=== PATIENT | male | born 1990 | race Caucasian/White ===

== ENCOUNTER 2017-05-14 15:14 | Emergency (ER) | payer SELFPAY ==
[2017-05-14] MEDS ORDERED: IBUPROFEN 400 MG TABLET PO STA (15:43)
[2017-05-14] MEDS ORDERED: IBUPROFEN 400 MG TABLET PO ONE (15:56)
--- NOTE | 2017-05-14 16:18 | XRAY Preliminary Report ---
Exam: XR CHEST 2 VIEW PA/LAT IMPRESSION: No acute intrathoracic plain film abnormality. [facility] SITE ID: [id number]
--- NOTE | 2017-05-14 16:19 | XRAY Preliminary Report ---
Exam: XR HIP W/PELVIS 2-3V LT IMPRESSION: No evidence of fracture or dislocation. [facility] SITE ID: [id number]
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
[2017-05-14 16:21] VITALS: BP 126/73
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
--- NOTE | 2017-05-14 16:31 | CT Preliminary Report ---
Exam: CT HEAD W/O IMPRESSION: No acute intracranial CT abnormality. [facility] SITE ID: [id number]
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
--- NOTE | 2017-05-14 16:35 | CT Preliminary Report ---
Exam: CT CERVICAL SPINE W/O IMPRESSION: No evidence of cervical spine fracture or dislocation. [facility] SITE ID: [id number]
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
== END 2017-05-14 17:34 | disposition home or self-care (01) ==
LOC: EDUNIT# → ED 15:14
DX: S09.90XA Unspecified injury of head, initial encounter (principal); S13.9XXA Sprain of joints and ligaments of unspecified parts of neck, initial encounter; V48.5XXA Car driver injured in noncollision transport accident in traffic accident, initial encounter; Y92.410 Unspecified street and highway as the place of occurrence of the external cause
CPT/HCPCS: 70450; 71020; 72125; 73502; 99283; A9270

== ENCOUNTER 2018-08-25 13:06 | Emergency (ER) | payer MEDICAID ==
[2018-08-25] MEDS ORDERED: LIDOCAINE 1%-EPI 1:100000 30 ML MDV SUBQ STA (13:28)
[2018-08-25] MEDS ORDERED: LIDOCAINE 1%-EPI 1:100000 30 ML MDV ONE (13:33)
--- NOTE | 2018-08-25 13:36 | ED Physician Documentation ---
PD HPI UPPER EXT INJURY - Stated complaint Stated Complaint: HAND LAC - Chief complaint Chief Complaint: Laceration - History obtained from History obtained from: Patient - History of Present Illness Location: Left, Hand (thumb and wrist) Type of injury: Laceration (broken pickle jar) Where injury occurred: Home Timing - onset: Last night Timing - duration: Hours (12) Timing - details: Abrupt onset Pain level max: 5 Pain level now: 4 Improved by: Rest, Ice, Immobilization Worsened by: Moving, Palpating Associated symptoms: Swelling. No: Weakness, Numbness, Tingling Contributing factors: No: Anticoagulated Recently seen: Not recently seen - Additonal information Additional information: pt is right handed Review of Systems Constitutional: denies: Fever Skin: denies: Rash PD PAST MEDICAL HISTORY - Past Medical History Past Medical History: No - Past Surgical History Past Surgical History: No - Present Medications Home Medications: Ambulatory Orders Medication Instructions Recorded Confirmed No Known Home Medications 08/25/18 08/25/18 - Allergies Allergies/Adverse Reactions: Allergies Allergy/AdvReac Type Severity Reaction Status Date / Time No Known Drug Allergies Allergy Verified 10/14/15 15:39 - Social History Does the pt smoke?: Yes Smoking Status: Current every day smoker Does the pt drink ETOH?: Yes Does the pt have substance abuse?: No - Family History Family history: reports: Non contributory - Immunizations Immunizations are current?: No Immunizations: TDAP >10years/unknown PD ED PE NORMAL - Vitals Vital signs reviewed: Yes - General General: Alert and oriented X 3 - Derm Derm: Warm and dry - Neuro Neuro: Alert and oriented X 3 PD ED PE EXPANDED - Extremities AYAN UE/Hands Visual: 1 - laceration (2cm, subcutaneous, NVI. tendon intact.) 2 - laceration (2cm, linear into fat. NVI. tendons intact.) Results - Vitals Vitals: Vital Signs - 24 hr 08/25/18 08/25/18 08/25/18 13:24 13:44 14:13 Temperature 36.6 C Heart Rate 84 76 77 Respiratory 18 18 Rate Blood Pressure 138/89 H 121/67 117/71 O2 Saturation 99 100 99 Oxygen O2 Source Room air Procedures - Laceration (location) Left hand Length in cm: 4 Wound type: Linear, Into subcut fat, Clean Neurovascular status: Sensory intact, Motor intact, Vascular intact Tendon involvement: Tendon intact Anesthesia: Lidocaine 1% with epi Wound Preparation: Irrigated copiously NS, Wound explored, To the base. No: FB identified, FB removed Skin layer closure: Nylon, Interrupted, Size #-0 - enter number (4) Other: Patient tolerated well, No complications, Neurovascular intact, Tetanus booster given (tdap) Complexity: Simple PD MEDICAL DECISION MAKING - ED course Complexity details: re-evaluated patient, considered differential, d/w patient ED course: 28-year-old male presents to the emergency department with left hand lacerations after falling while holding a pickle jar lacerating his hands. These were repaired. Warnings of infection and instructions on wound care given at bedside. Also counseled on how to minimize scarring. Patient counseled reg arding signs and symptoms for which I believe and urgent re-evaluation would be necessary. Patient with good understanding of and agreement to plan and is comfortable going home at this time This document was made in part using voice recognition software. While efforts are made to proofread this document, sound alike and grammatical errors may occur. Departure - Departure Disposition: 01 Home, Self Care Clinical Impression: Hand laceration Qualifiers: Encounter type: initial encounter Foreign body presence: without foreign body Laterality: left Qualified Code(s): S61.412A - Laceration without foreign body of left hand, initial encounter Condition: Good Instructions: ED Laceration Hand Follow-Up: your,doctor in 10-14 days for suture removal [Other] Comments: Return if you worsen. Keep the wound clean. Follow up with your doctor in 10-14 days for suture removal. Return for redness, swelling or drainage from the wound. Discharge Date/Time: 08/25/18 14:24
[2018-08-25] MEDS ORDERED: TETANUS/DIPHTHERIA/PERTUSSIS 0.5 ML SYRINGE IM ONE (14:04)
[2018-08-25] MEDS: TETANUS/DIPHTHERIA TOXOID 0.5 ML SYRINGE IM ONE ×2 (14:04→14:07)
[2018-08-25] MEDS ORDERED: BACITRACIN OINT TOP ONE (14:06)
[2018-08-25 14:13] VITALS: BP 117/71
== END 2018-08-25 14:24 | disposition home or self-care (01) ==
LOC: ED 13:06
DX: S61.512A Laceration without foreign body of left wrist, initial encounter (principal); S61.012A Laceration without foreign body of left thumb without damage to nail, initial encounter; W01.110A Fall on same level from slipping, tripping and stumbling with subsequent striking against sharp glass, initial encounter; Y92.009 Unspecified place in unspecified non-institutional (private) residence as the place of occurrence of the external cause; F17.200 Nicotine dependence, unspecified, uncomplicated; Z23 Encounter for immunization
CPT/HCPCS: 12002; 90471; 99282; 99283

== ENCOUNTER 2019-06-30 10:32 | Emergency (ER) | payer MEDICAID ==
--- NOTE | 2019-06-30 11:37 | ED Physician Documentation ---
PD HPI MHE - Stated complaint Stated Complaint: SI - Chief complaint Chief Complaint: MHE - History obtained from History obtained from: Patient - History of Present Illness Primary symptom: Suicidal ideation, Self harm - cut, Other (alcoholism) Timing - onset: How many weeks ago (He has had some depression for a while but more notable in the last few weeks. He is mostly depressed about his alcohol use and being unable to stop. There not been any social triggers or other issues per se.) Contributing factors: Substance abuse - ETOH (He does drink daily. He states he does not start till afternoon. He has not gone more than a day or 2 without feeling significant shakiness and withdrawal symptoms. He states he does not take any antidepressant medicines. He does get counseling weekly or every other week by a private practice counselor in [place].). No: Substance abuse - drugs Similar symptoms before: Diagnosis (Some history of depression in the past without any prior suicidal attempts.) Recently seen: Not recently seen Review of Systems Constitutional: denies: Fever, Chills Nose: denies: Rhinorrhea / runny nose, Congestion Throat: denies: Sore throat Cardiac: denies: Chest pain / pressure Respiratory: denies: Cough GI: denies: Abdominal Pain, Nausea, Vomiting, Diarrhea Musculoskeletal: denies: Neck pain, Back pain Neurologic: denies: Focal weakness, Numbness PD PAST MEDICAL HISTORY - Past Medical History Cardiovascular: None Respiratory: None Neuro: None Endocrine/Autoimmune: None Psych: Depression - Past Surgical History Past Surgical History: No - Present Medications Home Medications: Ambulatory Orders Medication Instructions Recorded Confirmed Ondansetron Odt [Zofran] 4 mg TL Q6H PRN #10 tablet 06/30/19 chlordiazePOXIDE [Librium] 25 mg PO Q6H PRN #25 capsule 06/30/19 - Allergies Allergies/Adverse Reactions: Allergies Allergy/AdvReac Type Severity Reaction Status Date / Time Penicillins Allergy Rash Verified 06/30/19 10:36 - Living Situation Living Arrangement: reports: At home - Social History Does the pt smoke?: Yes Smoking Status: Current every day smoker Does the pt drink ETOH?: Yes ETOH Use: Liquor Does the pt have substance abuse?: Yes Substance Use and Type: Marijuana - Immunizations Immunizations are current?: No Immunizations: TDAP >10years/unknown - POLST Patient has POLST: No PD ED PE NORMAL - Vitals Vital signs reviewed: Yes - General General: Alert and oriented X 3, Well developed/nourished - HEENT HEENT: Atraumatic, Pharynx benign - Neck Neck: Supple, no meningeal sign, No adenopathy - Cardiac Cardiac: RRR, No murmur - Respiratory Respiratory: Clear bilaterally - Abdomen Abdomen: Soft, Non tender, Non distended, No organomegaly - Derm Derm: Normal color, Warm and dry - Extremities Extremities: Normal ROM s pain, No edema, Other (The left radial side and palmar part of the wrist have very superficial lacerations without any full-thickness. He has normal sensation and movement in the fingers.) - Neuro Neuro: Alert and oriented X 3, No motor deficit, Normal speech Results - Vitals Vitals: Vital Signs - 24 hr 06/30/19 06/30/19 10:37 10:54 Temperature 36.7 C Heart Rate 90 Respiratory 18 18 Rate Blood Pressure 148/96 H 146/94 H O2 Saturation 100 Oxygen O2 Source Room air - Labs Labs: Laboratory Tests 06/30/19 06/30/19 06/30/19 12:10 12:10 12:10 WBC 15.5 H RBC 4.65 L Hgb 15.8 Hct 45.3 MCV 97.4 H MCH 34.0 H MCHC 34.9 RDW 11.9 L Plt Count 379 MPV 9.3 Neut # (Auto) 10.6 H Lymph # (Auto) 3.7 H [place] # (Auto) 0.9 Eos # (Auto) 0.1 Baso # (Auto) 0.1 Absolute Nucleated RBC 0.00 Nucleated RBC % 0.0 Sodium 137 Potassium 3.5 Chloride 98 L Carbon Dioxide 28 Anion Gap 11.0 BUN 8 Creatinine 0.8 Estimated GFR (MDRD) 114 Glucose 88 Calcium 9.3 Total Bilirubin 0.8 AST 62 H ALT 32 Alkaline Phosphatase 53 Total Protein 8.2 Albumin 4.7 Globulin 3.5 Albumin/Globulin Ratio 1.3 Lipase 45 TSH 0.52 Urine Color Urine Clarity Urine pH Ur Specific [place] Urine Protein Urine Glucose (UA) Urine Ketones Urine Occult Blood Urine Nitrite Urine Bilirubin Urine Urobilinogen Ur Leukocyte Esterase Ur Microscopic Review Urine Culture Comments Salicylates < 6.0 Urine Opiates Screen Ur Oxycodone Screen Urine Methadone Screen Ur Propoxyphene Screen Acetaminophen < 10 L Ur Barbiturates Screen Ur Tricyclics Screen Ur Phencyclidine Scrn Ur Amphetamine Screen U Methamphetamines Scrn U Benzodiazepines Scrn Urine Cocaine Screen U Cannabinoids Screen Ethyl Alcohol 328.8 06/30/19 12:15 WBC RBC Hgb Hct MCV MCH MCHC RDW Plt Count MPV Neut # (Auto) Lymph # (Auto) [place] # (Auto) Eos # (Auto) Baso # (Auto) Absolute Nucleated RBC Nucleated RBC % Sodium Potassium Chloride Carbon Dioxide Anion Gap BUN Creatinine Estimated GFR (MDRD) Glucose Calcium Total Bilirubin AST ALT Alkaline Phosphatase Total Protein Albumin Globulin Albumin/Globulin Ratio Lipase TSH Urine Color YELLOW Urine Clarity CLEAR Urine pH 6.5 Ur Specific [place] <=1.005 Urine Protein NEGATIVE Urine Glucose (UA) NEGATIVE Urine Ketones NEGATIVE Urine Occult Blood NEGATIVE Urine Nitrite NEGATIVE Urine Bilirubin NEGATIVE Urine Urobilinogen 0.2 (NORMAL) Ur Leukocyte Esterase NEGATIVE Ur Microscopic Review NOT INDICATED Urine Culture Comments NOT INDICATED Salicylates Urine Opiates Screen NEGATIVE Ur Oxycodone Screen NEGATIVE Urine Methadone Screen NEGATIVE Ur Propoxyphene Screen NEGATIVE Acetaminophen Ur Barbiturates Screen NEGATIVE Ur Tricyclics Screen NEGATIVE Ur Phencyclidine Scrn NEGATIVE Ur Amphetamine Screen NEGATIVE U Methamphetamines Scrn NEGATIVE U Benzodiazepines Scrn NEGATIVE Urine Cocaine Screen NEGATIVE U Cannabinoids Screen NEGATIVE Ethyl Alcohol PD MEDICAL DECISION MAKING - ED course Complexity details: re-evaluated patient (Patient slept and rested most of the afternoon. He is still feeling depressed when I reassessed him around dinnertime. At this point it seems reasonable for him to have the alcohol level still become lower and treat any withdrawal symptoms and have social work evaluate him.), considered differential (He does have history of alcoholism and had drank prior to coming here. He did make some superficial lacerations of the left wrist with intention to go deeper but did not have the desire to hurt himself more at that time. He does want help with his alcoholism and is most depressed about that. He does not currently get it any medication for depression but does get a counselor every week or 2. We will contact social work to come evaluate the patient. In particular dual diagnosis facility may be helpful if he wishes hospitalization. Otherwise he does request medication to help with alcohol withdrawal as have been his limitation on being able to quit.), d/w patient Departure - Departure Clinical Impression: Alcoholism, Suicidal ideation Laceration of wrist, left Qualifiers: Encounter type: initial encounter Qualified Code(s): S61.512A - Laceration without foreign body of left wrist, initial encounter Condition: Stable Record reviewed to determine appropriate education?: Yes Prescriptions: chlordiazePOXIDE [Librium] 25 mg PO Q6H PRN #25 capsule PRN Reason: Alcohol Withdrawal Ondansetron Odt [Zofran] 4 mg TL Q6H PRN #10 tablet PRN Reason: Nausea / Vomiting
[2019-06-30] MEDS ORDERED: LORazepam 1 MG TABLET PO STA (11:47)
[2019-06-30] MEDS ORDERED: OLANZapine ODT 5 MG TABLET TL ONE (11:47)
[2019-06-30 12:29] LABS: MUDS CUTOFF CONCENTRATIONS CUTOFF CONC BELOW:
[2019-06-30 12:33] LABS: BILIRUBIN,URINE NEGATIVE (NEGATIVE); GLUCOSE, URINE (UA) NEGATIVE (NEGATIVE); KETONES,URINE (UA) NEGATIVE (NEGATIVE); LEUKOCYTE ESTERASE, URINE NEGATIVE (NEGATIVE); NITRITE,URINE NEGATIVE (NEGATIVE); OCCULT BLOOD,URINE NEGATIVE (NEGATIVE); PH,URINE 6.5 PH (5.0-7.5); PROTEIN,URINE NEGATIVE (NEGATIVE); UROBILINOGEN,URINE 0.2 (NORMAL) E.U./dL (NORMAL)
[2019-06-30 12:34] LABS: CLARITY,URINE CLEAR (CLEAR)
[2019-06-30 12:42] LABS: AMPHETAMINE SCREEN,URINE NEGATIVE (NEGATIVE); BENZODIAZEPINES SCREEN, URINE NEGATIVE (NEGATIVE); COCAINE SCREEN URINE NEGATIVE (NEGATIVE); METHADONE SCREEN, URINE NEGATIVE (NEGATIVE); METHAMPHETAMINES SCREEN, URINE NEGATIVE (NEGATIVE); OPIATE SCREEN, URINE NEGATIVE (NEGATIVE); OXYCODONE SCREEN, URINE NEGATIVE (NEGATIVE); PROPOXYPHENE SCREEN, URINE NEGATIVE (NEGATIVE); TRICYCLIC ANTIDEPRESSANT,URINE NEGATIVE (NEGATIVE)
[2019-06-30 12:43] LABS: BASOPHILS # (AUTO) 0.1 10^3/uL (0.0-0.1); BASOPHILS % (AUTO) 0.9 %; EOSINOPHILS # (AUTO) 0.1 10^3/uL (0.0-0.7); EOSINOPHILS % (AUTO) 0.6 %; HGB - HEMOGLOBIN 15.8 g/dL (14.0-18.0); LYMPHOCYTES # (AUTO) 3.7 10^3/uL (1.5-3.5); LYMPHOCYTES % (AUTO) 23.6 %; MEAN CORPUSCULAR HGB CONC 34.9 g/dL (32.0-36.0); MEAN CORPUSCULAR VOLUME 97.4 fL (80.0-94.0); MEAN PLATELET VOLUME 9.3 fL (7.4-11.4); MONOCYTES # (AUTO) 0.9 10^3/uL (0.0-1.0); NEUTROPHILS # (AUTO) 10.6 10^3/uL (1.5-6.6); NEUTROPHILS % (AUTO) 68.3 %; PLT - PLATELET COUNT 379 10^3/uL (130-450); RED BLOOD COUNT 4.65 10^6/uL (4.70-6.10); RED CELL DISTRIBUTION WIDTH 11.9 % (12.0-15.0); WHITE BLOOD COUNT 15.5 x10^3/uL (4.8-10.8)
[2019-06-30 13:14] LABS: ACETAMINOPHEN < 10 ug/mL (10-30); ALBUMIN 4.7 g/dL (3.2-5.5); ALBUMIN/GLOBULIN RATIO 1.3 (1.0-2.2); ALKALINE PHOSPHATASE 53 IU/L (42-121); ALT ALANINE AMINOTRANSFERASE 32 IU/L (10-60); AST ASPARTATE AMINOTRANSFERASE 62 IU/L (10-42); BILIRUBIN,TOTAL 0.8 mg/dL (0.2-1.0); BUN - BLOOD UREA NITROGEN 8 mg/dL (6-20); CALCIUM 9.3 mg/dL (8.5-10.3); CARBON DIOXIDE - CO2 28 mmol/L (21-32); CHLORIDE 98 mmol/L (101-111); CREATININE 0.8 mg/dL (0.6-1.2); GFR - MDRD 114 (>89); GLUCOSE 88 mg/dL (70-100); LIPASE 45 U/L (22-51); SALICYLATE < 6.0 mg/dL; SODIUM 137 mmol/L (135-145); TOTAL PROTEIN 8.2 g/dL (6.7-8.2)
[2019-06-30] MEDS ORDERED: LORazepam 1 MG TABLET PO PRN (18:08)
[2019-06-30] MEDS ORDERED: NICOTINE 14 MG PATCH TOP STA (23:44)
[2019-07-01 08:12] LABS: BASOPHILS # (AUTO) 0.1 10^3/uL (0.0-0.1); BASOPHILS % (AUTO) 1.4 %; EOSINOPHILS # (AUTO) 0.1 10^3/uL (0.0-0.7); EOSINOPHILS % (AUTO) 1.3 %; HGB - HEMOGLOBIN 14.4 g/dL (14.0-18.0); LYMPHOCYTES # (AUTO) 2.3 10^3/uL (1.5-3.5); LYMPHOCYTES % (AUTO) 29.8 %; MEAN CORPUSCULAR HGB CONC 34.2 g/dL (32.0-36.0); MEAN CORPUSCULAR VOLUME 99.3 fL (80.0-94.0); MEAN PLATELET VOLUME 9.7 fL (7.4-11.4); MONOCYTES # (AUTO) 0.9 10^3/uL (0.0-1.0); MONOCYTES % (AUTO) 12.1 %; NEUTROPHILS # (AUTO) 4.2 10^3/uL (1.5-6.6); PLT - PLATELET COUNT 292 10^3/uL (130-450); RED BLOOD COUNT 4.24 10^6/uL (4.70-6.10); RED CELL DISTRIBUTION WIDTH 11.7 % (12.0-15.0); WHITE BLOOD COUNT 7.6 x10^3/uL (4.8-10.8)
[2019-07-01] MEDS ORDERED: LORazepam 1 MG TABLET PO STA (08:46)
--- NOTE | 2019-07-01 08:46 | ED Physician Documentation ---
ED Addendum - Addendum Addendum: 07/01/19 08:45 The patient reportedly did well overnight. He had PRN medications for Ativan but apparently did not receive any. He states he feels a little bit shaky this morning. We can give him some Ativan p.o. Social work will be in to talk to him again. He is not feeling suicidal intention this morning as I talked to him. He does still have the feeling of depression. He does have a counselor that he normally sees. I will check with social work to see their assessment an d safety plan initiatives. The patient states he would prefer going home and not feeling that he needs hospitalizing as I asked him this morning.
[2019-07-01 12:23] VITALS: BP 135/82
== END 2019-07-01 12:51 | disposition home or self-care (01) ==
LOC: ED 10:32
DX: R45.851 Suicidal ideations (principal); S61.512A Laceration without foreign body of left wrist, initial encounter; X83.8XXA Intentional self-harm by other specified means, initial encounter; F10.20 Alcohol dependence, uncomplicated; F17.200 Nicotine dependence, unspecified, uncomplicated
CPT/HCPCS: 36415; 80053; 80306; 80307; 80320; 80329; 81003; 83690; 84443; 85025; 99283; 99284; A9270; J8499; 81001; 87086